=== PATIENT | male | born 1950 | race Asian ===

== ENCOUNTER 2017-04-20 12:59 | Inpatient (IN) | payer OTHER ==
[~2017-04-20] VITALS: Wt 65.7 kg
[2017-04-20 13:53] LABS: PH 7 (5-8); SQUAMOUS EPITHELIAL None Seen /hpf; URINE APPEARANCE Clear; URINE BACTERIA None Seen /hpf; URINE BILIRUBIN Negative (NEGATIVE); URINE BLOOD 1+ (NEGATIVE); URINE COLOR Colorless; URINE GLUCOSE Negative (NEGATIVE); URINE KETONE Negative (NEGATIVE); URINE RBC 0-2 /hpf; URINE UROBILINOGEN Negative (NEGATIVE); URINE WBC 0-2 /hpf
[2017-04-20 13:55] LABS: BASO % 0.5 % (0.0-2.0); EOS # 0.1 (0.0-0.7); EOS % 0.9 % (0-4.0); GRAN # 3.2 (1.4-6.5); GRAN % 48.9 % (42.2-75.2); LYMPH # 2.2 (1.2-3.4); LYMPH % 33.8 % (20.0-51.0); MEAN CELL VOLUME 85 fl (80.0-100.0); MEAN CORPUSCULAR HGB CONC 39 g/dl (33.0-37.0); MEAN PLATELET VOLUME 13.2 fl (7.4-10.4); MONO % 15.4 % (1.7-9.3); PLATELET COUNT 152 K/mm3 (130-400); RED BLOOD COUNT 3.32 M/mm3 (4.20-5.60); REDCELL DISTRIBUTION WIDTH-CV 11.2 % (11.5-14.5); WHITE BLOOD COUNT 6.5 K/mm3 (4.8-10.8)
[2017-04-20 13:58] LABS: HEMATOCRIT 28.2 % (42.0-52.0); MEAN CORPUSCULAR HEMOGLOBIN 33 pg (27.0-31.0)
[2017-04-20 14:07] LABS: ADJUSTED CALCIUM 8.8 mg/dL (8.4-10.2); ALBUMIN 4.2 gm/dL (3.5-5.0); BILIRUBIN,TOTAL 0.8 mg/dL (0.0-1.0); CREATININE, serum 1.25 mg/dL (0.66-1.25); TOTAL PROTEIN 7.6 gm/dL (6.4-8.2)
[2017-04-20 14:19] LABS: POTASSIUM 2.9 mmol/L (3.4-5.0)
[2017-04-20] MEDS ORDERED: PRINZIDE 12.5 M1 TAB PO (15:59)
[2017-04-20] MEDS ORDERED: TIROSINT25 MC1 PO (15:59)
[2017-04-20 16:03] LABS: MAGNESIUM 1.5 mg/dL (1.6-2.3)
[2017-04-20 18:18] LABS: PHOSPHOROUS 3.2 mg/dL (2.5-4.5)
[2017-04-20 23:12] VITALS: BP 134/57; PULSE 61; TEMP 98.8
[2017-04-20 23:15] VITALS: BP 124/52; PULSE 59; TEMP 98.8
[2017-04-21 03:16] VITALS: BP 126/65; PULSE 55; TEMP 98.9
[2017-04-21] MEDS ORDERED: ELTROXIN PO (06:04)
[2017-04-21] MEDS ORDERED: [UNRECOGNIZED DRUG - OTHER] PO (06:08)
[2017-04-21 07:36] LABS: CALCIUM 8.3 mg/dL (8.4-10.2); CREATININE, serum 0.93 mg/dL (0.66-1.25); POTASSIUM 3.2 mmol/L (3.4-5.0)
[2017-04-21 08:19] VITALS: BP 154/72; PULSE 55; TEMP 98.6
[2017-04-21] MEDS ORDERED: PROTONIX 40MG T40 MG PO (10:06)
[2017-04-21] MEDS ORDERED: K-DUR20 MEQ PO (10:07)
== END 2017-04-21 11:05 | disposition home or self-care (01) | DRG 641 ==
LOC: COL.ER 12:59 → MEDICAL 14:51
PROVIDERS: Emergency Medicine; Physician Assistant
DX: E87.1 Hypo-osmolality and hyponatremia (principal); E87.6 Hypokalemia; I10 Essential (primary) hypertension; E03.9 Hypothyroidism, unspecified; K21.9 Gastro-esophageal reflux disease without esophagitis; E83.42 Hypomagnesemia
CPT/HCPCS: 99222-AI; 99239; C9113; J1650; J3475; J3480; J7030